=== PATIENT | female | born 1980 | race Caucasian/White ===

== ENCOUNTER 2021-03-27 10:10 | Emergency (ER) | payer OTHER ==
[~2021-03-27] VITALS: Ht 167.6 cm; Wt 99.8 kg
[2021-03-27] MEDS ORDERED: RAYOS5 MG PO (10:26)
[2021-03-27] MEDS ORDERED: HYDROCHLOROTHIA25 M1 PO (10:27)
[2021-03-27 12:18] LABS: ABSOLUTE EOSINOPHILS 0.1 thou/uL (0.0-0.7); ABSOLUTE LYMPHOCYTES 1.4 thou/uL (0.8-5.3); ABSOLUTE MONOCYTES 0.3 thou/uL (0.0-1.2); ABSOLUTE NEUTROPHILS 2.2 thou/uL (1.6-8.1); BASOPHILS 0.3 %; EOSINOPHILS 1.5 %; HEMATOCRIT 38.8 % (37.0-47.0); HEMOGLOBIN 12.6 gm/dL (12.0-15.0); LYMPHOCYTES 34.9 %; MCH 27.5 pg (26.0-34.0); MCHC 32.4 g/dL (28.0-37.0); MCV 84.9 fL (80.0-100.0); MONOCYTES 6.4 %; MPV 7.1 fl. (7.2-11.1); NUCLEATED RBCS 0 /100WBC; PLATELET COUNT* 267 thou/uL (150-400); POLYS 56.9 %; RBC 4.57 mil/uL (4.20-5.00); RDW-CV 13.9 % (10.5-14.5)
--- NOTE | 2021-03-27 12:33 | EKG ---
[place] [address] ELECTROCARDIOGRAM REPORT Name: ROBBIE WILKERSON Room: [facility]#: [id number] Admission: 03/27/21 Attend Phys: Discharge: Date of : 82 Date of Service: 03/27/21 1214 Report #: [id number] THIS REPORT FOR: //name// [facility] ED Test Date: 2021-03-27 Test Time: 12:14:35 Pat Name: ROBBIE WILKERSON Department: Room: Gender: F Rn Cvicu: : 1980 Requested By: Luana Denny Order Number: [id number] MD: Carmine Geronimo Measurements Intervals [place] Rate: 64 P: 2 AL: 160 QRS: 46 QRSD: 96 T: 44 QT: 407 QTc: 420 Interpretive Statements Sinus rhythm No previous ECG available for comparison Electronically Signed On 03-27-2021 12:33:03 CDT by Carmine Geronimo [email or web address] <ELECTRONICALLY SIGNED> By: Carmine Geronimo MD, [facility] 03/27/21 1233 1214 1214 Carmine Geronimo MD, FACC /EPI
[2021-03-27 13:51] LABS: CALCIUM 8.4 mg/dL (8.5-10.1); CREATININE 0.6 mg/dL (0.6-1.3); POTASSIUM 3.9 mmol/L (3.5-5.1)
[2021-03-27 13:55] LABS: ALBUMIN 3.7 g/dL (3.4-5.0); TOTAL BILIRUBIN 0.2 mg/dL (<0.1-1.0); TOTAL PROTEIN 7.4 g/dL (6.4-8.2)
[2021-03-27] MEDS ORDERED: ZOFRAN ODT4 MG PO (15:09)
[2021-03-27] MEDS ORDERED: TRANSDERM-SCOP1 EACH TRANSDERM (15:09)
[2021-03-27 15:36] VITALS: BP 114/52
== END 2021-03-27 15:39 | disposition home or self-care (01) ==
LOC: M.ERS 10:10
PROVIDERS: Nurse Practitioner Family
DX: H81.10 Benign paroxysmal vertigo, unspecified ear (principal); M06.9 Rheumatoid arthritis, unspecified; Z87.42 Personal history of other diseases of the female genital tract; Z86.718 Personal history of other venous thrombosis and embolism